=== PATIENT | male | born 1975 | race Caucasian/White ===

== ENCOUNTER 2017-03-27 07:25 | Emergency (ER) | payer SELFPAY ==
[2017-03-27 07:38] VITALS: BP 139/84
[2017-03-27] MEDS ORDERED: Tetracaine 0.5% OPTH.SOL 4 ML* 1 DROP BTL LEFT EYE ONE (07:44)
[2017-03-27] MEDS ORDERED: Fluorescein Sod TOPICAL 0.6* 0.6 MG TEST OPHTHALMIC ONE (07:44)
--- NOTE | 2017-03-27 09:10 | UC ---
Tien Rodas Tiffany, scribed for Roxana Lal DO on 03/27/17 at 0758 . 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 The pain is described as burning and sharp. The patient rates the pain 8/10 in severity. Symptoms aggravated by nothing. Symptoms alleviated by nothing. He reports that the pain was a gradual onset, as he did not notice anything right away. Patient denies vision changes, fever, chills, and diaphoresis. - History of Current Complaint Chief Complaint: UCEye Stated Complaint: EYE INJURY Time Seen by Provider: 03/27/17 07:43 Hx Obtained From: Patient Onset/Duration: Lasting Days - Yesterday afternoon, Still Present Severity Currently: Severe Pain Intensity: 8 Pain Scale Used: 0-10 Numeric Location of Injury: Other - Left eye Character: Sharp Aggravating Factor(s): Nothing Alleviating Factor(s): Nothing Associated Signs And Symptoms: Positive: Negative - vision changes, fever, chills, and diaphoresis - Allergies/Home Medications Allergies/Adverse Reactions: Allergies Allergy/AdvReac Type Severity Reaction Status Date / Time Sulfa Antibiotics Allergy Unknown Verified 03/27/17 08:37 Reaction Details PMH/Surg Hx/FS Hx/Imm Hx Previously Healthy: No Other Endocrine History: NEGATIVE: Diabetes, thyroid disease Cardiovascular History: Hypertension Other Cardiovascular History: NEGATIVE: Cardiac disease Other Respiratory History: NEGATIVE: COPD, Asthma Other GI/ History: NEGATIVE: Ulcer - Surgical History Surgical History: None - Family History Known Family History: Positive: Hypertension - Social History Alcohol Use: Rare Substance Use Type: None Smoking Status (MU): Never Smoked Tobacco Review of Systems Constitutional: Negative - Fever, chills, diaphoresis Eyes: Negative - Vision changes, Other - Left eye pain All Other Systems Reviewed And Are Negative: Yes Physical Exam Triage Information Reviewed: Yes Vital Signs: Initial Vital Signs Temp 98.5 F 03/27/17 07:33 Pulse 84 03/27/17 07:33 Resp 18 03/27/17 07:33 BP 139/84 03/27/17 07:33 Pulse Ox 96 03/27/17 07:33 Vital Signs Reviewed: Yes Eye Complaint Course/Dx - Course Course Of Treatment: WE ATTEMPTED TO REMOVE THE FOREIGN BODY PT'S EYE WITH A COTTON TIP APPLICATOR AND A NEEDLE. UNFORTUNATELY, WE WERE NOT ABLE TO GET IT OUT. The patient was discharged and referred to the ED. The patient is agreeable with this plan. Allergies reviewed. High blood pressure noted. - Differential Dx/Diagnosis Provider Diagnoses: Foreign body, Elevated blood pressure without diagnosis of hypertension Discharge - Discharge Plan Condition: Stable Disposition: HOME Discharge Disposition Comment: Referred to Emergency Department Patient Education Materials: Eye Foreign Body (ED) Referrals: No Primary Care Phys,NOPCP [Primary Care Provider] - Additional Instructions: WE ATTEMPTED TO REMOVE THE FOREIGN BODY FROM YOUR EYE. UNFORTUNATELY, WE WERE NOT ABLE TO GET IT OUT. I AM SORRY. PLEASE GO IMMEDIATELY TO THE ED WHERE THEY HAVE BETTER EQUIPMENT FOR REMOVING FOREIGN BODIES FROM THE EYE. The documentation as recorded by the Tien murray Tiffany accurately reflects the service I personally performed and the decisions made by me, Roxana Lal DO.
== END 2017-03-27 08:20 ==
LOC: UCEAST 07:25
DX: R50.9 Fever, unspecified (principal); R05 Cough
CPT/HCPCS: A9270-GY

== ENCOUNTER 2017-03-27 08:35 | Emergency (ER) | payer SELFPAY ==
[2017-03-27] MEDS ORDERED: Fluorescein Sodium TOPICAL* 1 MG TEST OPHTHALMIC ONE (08:59)
[2017-03-27] MEDS ORDERED: Fluorescein Sodium TOPICAL* 1 MG TEST ONE (09:00)
--- NOTE | 2017-03-27 09:34 | ED ---
Throat Pain/Nasal Congestion - HPI Summary HPI Summary: Patient presents to the ED from urgent care with chief complaint: Foreign body in the left eye. He sustained the injury yesterday while working under a vehicle. He believes it may just be a small piece of particle from the car that he was working on. He notes to redness, moderate amount of pain, in tearing of the eye. Denies headaches. Denies any other symptoms. He is not contact lens wearer. He is otherwise healthy. He denies any other complaints. Denies diplopia, blurred vision, photophobia. - History of Current Complaint Chief Complaint: EDEyeProblem Time Seen by Provider: 03/27/17 08:50 Hx Obtained From: Patient Onset/Duration: Gradual Onset Severity: Moderate Associated Signs And Symptoms: Positive: FB Sensation - Epiglottits Risk Factors Epiglottis Risk Factors: Negative - Allergies/Home Medications Allergies/Adverse Reactions: Allergies Allergy/AdvReac Type Severity Reaction Status Date / Time Sulfa Antibiotics Allergy Unknown Verified 03/27/17 08:37 Reaction Details PMH/Surg Hx/FS Hx/Imm Hx Previously Healthy: Yes Endocrine/Hematology History: Denies: Hx Diabetes, Hx Thyroid Disease Cardiovascular History: Reports: Hx Hypertension Respiratory History: Denies: Hx Asthma, Hx Chronic Obstructive Pulmonary Disease (COPD) GI History: Denies: Hx Ulcer - Immunization History Hx Pertussis Vaccination: No Immunizations Up to Date: Unable to Obtain/Confirm Infectious Disease History: No Infectious Disease History: Denies: Hx Hepatitis, Hx Human Immunodeficiency Virus (HIV), Traveled Outside the [place] in Last 30 Days - Family History Known Family History: Positive: None, Unknown - Social History Occupation: Employed Full-time Lives: With Family Alcohol Use: Rare Hx Substance Use: No Substance Use Type: Reports: None Hx Tobacco Use: No Smoking Status (MU): Never Smoked Tobacco Review of Systems Constitutional: Negative Negative: Fever, Chills, Fatigue Positive: Drainage, Erythema Cardiovascular: Negative Respiratory: Negative Genitourinary: Negative Positive: no symptoms reported, see HPI Skin: Negative Neurological: Negative All Other Systems Reviewed And Are Negative: Yes Physical Exam Triage Information Reviewed: Yes Vital Signs On Initial Exam: Initial Vitals Temp Pulse Resp BP Pulse Ox 98.6 F 74 20 142/86 97 03/27/17 08:37 03/27/17 08:37 03/27/17 08:37 03/27/17 08:37 03/27/17 08:37 Vital Signs Reviewed: Yes Appearance: Positive: Well-Appearing, Well-Nourished Skin: Positive: Warm, Skin Color Reflects Adequate Perfusion Head/Face: Positive: Normal Head/Face Inspection Eyes: Positive: Conjunctiva Inflammed, Discharge Neck: Positive: Supple, No Lymphadenopathy Respiratory/Lung Sounds: Positive: Clear to Auscultation, Breath Sounds Present Cardiovascular: Positive: RRR, Pulses are Symmetrical in both Upper and Lower Extremities Musculoskeletal: Positive: Strength/ROM Intact Neurological: Positive: Speech Normal Psychiatric: Positive: Affect/Mood Appropriate AVPU Assessment: Alert Diagnostics - Vital Signs Vital Signs Temp Pulse Resp BP Pulse Ox 03/27/17 08:37 98.6 F 74 20 142/86 97 - Laboratory Lab Statement: Any lab studies that have been ordered have been reviewed, and results considered in the medical decision making process. EENT Course/Dx - Course Course Of Treatment: Patient evaluated for FB vs abrasion vs. ocular trauma or periocular trauma. He denies sunlight fagan, recent illness or sick contacts. He feels there is a FB in the eye. After scanning the eye with fluorosceine uptake using tetracaine analgesic, the upper and lower lids retracted to allow for assessment of FB under the eye lids. No obvious perforation with teardrop pupil, vitreous extrusion, or protruding intraocular foreign body. Small particle visualized in the lateral part of the eye. No orbital compartment syndrome, hyphema, subconjunctival hemorrhage, evidence of increased intraorbital pressure or evidence of abrasions. Attempted to remove the foreign body without success with an 18-gauge needle. . FB removed with small alligator scissors. While abrasion not seen on fluoroscein will continue to treat with polymyxin-trimethoprim abx drops for possible small abrasion to prevent infection. Patient is encouraged to follow up with opthomology today if symptoms persist. He declines any pain medications at discharge. - Diagnoses Provider Diagnoses: Foreign body in cornea, left eye, initial encounter Discharge - Discharge Plan Condition: Stable Disposition: HOME Prescriptions: Polymyx/Trimethoprim OPTH* [Polytrim OPHTH*] 1 drop BOTH EYES SEE INSTRUCTIONS # 1 btl Patient Education Materials: Eye Foreign Body (ED) Referrals: Demetrius Freeman MD [Primary Care Provider] - Additional Instructions: Please follow up with ophthalmology if symptoms persist 1-2 drops in the left eye for the next 5-7 days to prevent infection I have given you a prescription Soothing eyedrops during the day will help with any discomfort
[2017-03-27 09:35] VITALS: BP 133/78
== END 2017-03-27 09:34 | disposition home or self-care (01) ==
LOC: ED 08:35
DX: T15.02XA Foreign body in cornea, left eye, initial encounter (principal); X58.XXXA Exposure to other specified factors, initial encounter; Y92.9 Unspecified place or not applicable; I10 Essential (primary) hypertension; Z88.2 Allergy status to sulfonamides
CPT/HCPCS: 99282; A9270-GY